=== PATIENT | female | born 1960 | race Caucasian/White ===

== ENCOUNTER 2018-11-19 03:44 | Observation (INO) | payer OTHER ==
[~2018-11-19] VITALS: Ht 170.2 cm; Wt 68.6 kg
[2018-11-19] VITALS (10 sets, daily range): BP systolic 105–116; BP diastolic 55–69; PULSE 59–74; RESP 16–18; Ht 170.2 cm; Wt 68.6 kg
[2018-11-19] MEDS ORDERED: ONDANSETRON 4 MG INJ IV STA (03:56)
[2018-11-19] MEDS ORDERED: morphine 4 MG/ML VIAL IV STA ×2 (03:56→05:08)
[2018-11-19] MEDS ORDERED: SOD CHLORIDE 0.9% 100 ML ONE (04:38)
[2018-11-19] MEDS ORDERED: IOHEXOL 300MG/ML 150 ML BTL ONE (04:38)
--- NOTE | 2018-11-19 05:26 | ERD ---
ER Documentation Chief Complaint Chief Complaint H/A, L SIDED NUMBNESS, POSSIBLE SYNCOPE APPROX 0300 HPI This is a 57-year-old female with a history of hypertension who presents for evaluation of headache, and left-sided numbness for the last hour. The patient reports that her symptoms started earlier today, she states that she felt near syncopal at that time, she denies chest pain or shortness of breath, she has a history of migraine headaches, but states this is different. There are no alleviating or aggravating factors. ROS All systems reviewed and are negative except as per history of present illness. Allergies Allergies: Coded Allergies: No Known Allergy (Unverified , 07/26/14) PMhx/Soc Hx Miscellaneous Medical Probl: Yes (MIGRAINES) Hx Alcohol Use: No Hx Substance Use: No Hx Tobacco Use: No Smoking Status: Never smoker Physical Exam Vitals Vital Signs Date Temp Pulse Resp B/P (MAP) Pulse Ox O2 O2 Flow FiO2 Time Delivery Rate 11/19/18 Nasal 1 04:02 Cannula 11/19/18 98.7 87 18 180/104 100 03:47 (129) Physical Exam Const: No acute distress Head: Atraumatic Eyes: Normal Conjunctiva ENT: Normal External Ears, Nose and Mouth. Neck: Full range of motion. No meningismus. Resp: Clear to auscultation bilaterally Cardio: Regular rate and rhythm, no murmurs Abd: Soft, non tender, non distended. Normal bowel sounds Skin: No petechiae or rashes Back: No midline or flank tenderness Ext: No cyanosis, or edema Neur: Awake and alert, alert and oriented x4, cranial nerves 2 through 12 intact, strength 5 out of 5 bilaterally, Psych: Normal Mood and Affect Result Diagram: 11/19/1840911/19/18409 Results 24 hrs Laboratory Tests Test 11/19/18 04:10 11/19/18 04:23 White Blood Count 6.3 10^3/ul Red Blood Count 4.42 10^6/ul Hemoglobin 14.0 g/dl Hematocrit 40.5 % Mean Corpuscular Volume 91.6 fl Mean Corpuscular Hemoglobin 31.7 pg Mean Corpuscular Hemoglobin Concent 34.6 g/dl Red Cell Distribution Width 11.5 % Platelet Count 290 10^3/UL Mean Platelet Volume 9.6 fl Immature Granulocytes % 0.200 % Neutrophils % 64.8 % Lymphocytes % 26.6 % Monocytes % 7.0 % Eosinophils % 0.8 % Basophils % 0.6 % Nucleated Red Blood Cells % 0.0 /100WBC Immature Granulocytes # 0.010 10^3/ul Neutrophils # 4.1 10^3/ul Lymphocytes # 1.7 10^3/ul Monocytes # 0.4 10^3/ul Eosinophils # 0.1 10^3/ul Basophils # 0.0 10^3/ul Nucleated Red Blood Cells # 0.0 10^3/ul Prothrombin Time 12.8 Sec Prothrombin Time Ratio 1.0 INR International Normalized Ratio 0.95 Activated Partial Thromboplast Time 26.4 Sec Sodium Level 142 mmol/L Potassium Level 3.9 mmol/L Chloride Level 106 mmol/L Carbon Dioxide Level 25 mmol/L Anion Gap 11 Blood Urea Nitrogen 13 mg/dl Creatinine 0.71 mg/dl Est Glomerular Filtrat Rate mL/min > 60 mL/min Glucose Level 122 mg/dl Calcium Level 9.6 mg/dl Troponin I < 0.012 ng/ml Triglycerides Level 183 mg/dl Cholesterol Level 264 mg/dl LDL Cholesterol, Calculated 185 mg/dl HDL Cholesterol 42 mg/dl Cholesterol/HDL Ratio 6.2 RATIO Bedside Glucose 118 mg/dL Current Medications Medications Dose Sig/Yun Start Time Status Last (Trade) Ordered Route PRN Stop Time Admin Dose Reason Admin Morphine 4 mg ONCE STAT 11/19/18 DC 11/19/18 Sulfate IV 03:56 11/19/18 04:34 (morphine) 04:08 Ondansetron 4 mg ONCE STAT 11/19/18 DC 11/19/18 HCl (Zofran IV 03:56 11/19/18 04:34 Inj) 04:08 Sodium 100 ml @ ud STK-MED 11/19/18 DC 11/19/18 Chloride ONCE .ROUTE 04:38 11/19/18 04:39 04:39 Iohexol 150 ml STK-MED 11/19/18 DC 11/19/18 (Omnipaque ONCE .ROUTE 04:38 11/19/18 04:39 300mg/ ml) 04:39 Morphine 4 mg ONCE STAT 11/19/18 DC Sulfate IV 05:08 11/19/18 (morphine) 05:09 Procedures/MDM This is a 57-year-old female who presents for evaluation of headache and left arm numbness. She has a history of migraine headaches, however her left arm numbness is new, thus considered TIA, her symptoms are intermittent and her NIH stroke scale would be 0, thus it it is less likely to be acute CVA, her CT and CTA were negative for acute findings. I discussed the case with radiology, and differential diagnosis includes complex migraine, versus multiple sclerosis, MRI was ordered, and patient will be admitted to telemetry under Dr. Joaquin. EKG: Rate/Rhythm: Normal Sinus Rhythm QRS, ST, T-waves: No changes consistent w/ acute ischemia Impression: No evidence of ischemia or arrhythmia Departure Diagnosis: Primary Impression: Headache Headache type: unspecified Headache chronicity pattern: acute headache Intractability: not intractable Qualified Codes: R51 - Headache Additional Impression: Left arm numbness Condition: Stable MAIDA HORNER MD Nov 19, 2018 05:26
[2018-11-19] MEDS ORDERED: [UNRECOGNIZED DRUG - CODE] PO (05:46)
[2018-11-19] MEDS ORDERED: CYAN100080 PO (05:46)
[2018-11-19] MEDS ORDERED: DOCUSATE SODIUM 100 MG CAP PO PRN (09:00)
[2018-11-19] MEDS ORDERED: ONDANSETRON 4 MG INJ IV PRN (09:00)
[2018-11-19] MEDS ORDERED: morphine 4 MG/ML VIAL IV PRN (09:00)
[2018-11-19] MEDS ORDERED: ACETAMINOPHEN 325 MG TAB PO PRN (09:00)
[2018-11-19] MEDS ORDERED: ZOLPIDEM 5 MG TAB PO PRN (09:00)
[2018-11-19] MEDS ORDERED: HYDROCODONE/APAP (5/325) TAB PO PRN (09:00)
[2018-11-19] MEDS ORDERED: NACL 0.9% 3 ML SYG IV SCH (09:00)
--- NOTE | 2018-11-19 10:35 | NUR ---
Admitted from ER with Dx of numbness to LUE. Awake, alert/oriented x4. Initial assessments done, skin photo taken. Call light within reach for assistance. Discussed plan of care.
--- NOTE | 2018-11-19 11:37 | HP ---
Date/Time of Note Date/Time of Note DATE: 11/19/18 TIME: 11:30 Assessment/Plan VTE Prophylaxis Pharmacological prophylaxis: LMWH Lines/Catheters IV Catheter Type (from Nrsg): Saline Lock Assessment/Plan Hospital Course 1. Left-sided weakness secondary to hemiplegia from a migraine MRI shows small increased FLAIR / T2 signal in the periventricular and subcortical white matter likely secondary to a migraine CTA of the head shows no significant findings Neurology consultation obtained PT and OT evaluation Anticipate improvement with time Pain control Aspirin and statin for now Prophylaxis: Lovenox Result Diagram: 11/19/18 0410 11/19/18 0410 Results 24hrs Laboratory Tests Test 11/19/18 04:10 11/19/18 04:23 11/19/18 06:32 White Blood Count 6.3 Red Blood Count 4.42 Hemoglobin 14.0 Hematocrit 40.5 Mean Corpuscular Volume 91.6 Mean Corpuscular Hemoglobin 31.7 Mean Corpuscular Hemoglobin Concent 34.6 Red Cell Distribution Width 11.5 Platelet Count 290 Mean Platelet Volume 9.6 Immature Granulocytes % 0.200 Neutrophils % 64.8 Lymphocytes % 26.6 Monocytes % 7.0 Eosinophils % 0.8 Basophils % 0.6 Nucleated Red Blood Cells % 0.0 Immature Granulocytes # 0.010 Neutrophils # 4.1 Lymphocytes # 1.7 Monocytes # 0.4 Eosinophils # 0.1 Basophils # 0.0 Nucleated Red Blood Cells # 0.0 Prothrombin Time 12.8 Prothrombin Time Ratio 1.0 INR International Normalized Ratio 0.95 Activated Partial Thromboplast Time 26.4 Sodium Level 142 Potassium Level 3.9 Chloride Level 106 Carbon Dioxide Level 25 Anion Gap 11 Blood Urea Nitrogen 13 Creatinine 0.71 Est Glomerular Filtrat Rate mL/min > 60 Glucose Level 122 Hemoglobin A1c 4.8 Calcium Level 9.6 Troponin I < 0.012 Triglycerides Level 183 H Cholesterol Level 264 H LDL Cholesterol, Calculated 185 HDL Cholesterol 42 Cholesterol/HDL Ratio 6.2 Bedside Glucose 118 Urine Color STRAW Urine Clarity CLEAR Urine pH 6.0 Urine Specific [place] 1.043 H Urine Ketones NEGATIVE Urine Nitrite NEGATIVE Urine Bilirubin NEGATIVE Urine Urobilinogen NEGATIVE Urine Leukocyte Esterase NEGATIVE Urine Hemoglobin NEGATIVE Urine Glucose NEGATIVE Urine Total Protein NEGATIVE Urine Opiates Screen Positive Urine Barbiturates Negative Urine Amphetamines Screen Negative Urine Benzodiazepines Screen Negative Urine Cocaine Screen Negative Urine Cannabinoids Negative HPI/ROS Admit Date/Time Admit Date/Time Nov 19, 2018 at 05:23 Hx of Present Illness Patient is a 57-year-old female with a past medical history of migraines, patient presents with left-sided facial and upper extremity weakness that began yesterday after a significant migraine. Patient reports feeling confused after her migraine with associated numbness and weakness on the left side of her face as well as in her left arm. Patient has no prior history of such symptoms and has no history of strokes or cardiac issues. Patient states that her headache has currently improved and her weakness has slowly begun to improve. Patient has no other complaints at this time. ROS Constitutional: no complaints, improved Eyes: no complaints ENT: no complaints Respiratory: no complaints Cardiovascular: no complaints Gastrointestinal: no complaints Genitourinary: no complaints Musculoskeletal: no complaints Skin: no complaints Neurologic: focal-weakness (Left-sided weakness) Endocrine: no complaints Lymphatic: no complaints Psychological: no complaints, nl mood/affect Immunologic: no complaints PMH/Family/Social Past Medical History Migraines Medications Current Medications Influenza Virus Vaccine Quadrival (Fluzone) 0.5 ml ONCE ONCE IM* ; Start 11/20/18 at 10:00; Stop 11/20/18 at 10:01 IV Flush (NS 3 ml) 3 ml PER PROTOCOL IV ; Start 11/19/18 at 09:00 Ondansetron HCl (Zofran Inj) 4 mg Q6H PRN IV NAUSEA AND/OR VOMITING; Start 11/19/18 at 09:00 Acetaminophen (Tylenol Tab) 650 mg Q6H PRN PO PAIN LEVEL 1-3 OR FEVER; Start 11/19/18 at 09:00 Acetaminophen/ Hydrocodone Bitart ([place] (5/325)) 1 tab Q6H PRN PO MODERATE PAIN LEVEL 4-6; Start 11/19/18 at 09:00 Morphine Sulfate (morphine) 2 mg Q4H PRN IV SEVERE PAIN LEVEL 7-10; Start 11/19/18 at 09:00 Docusate Sodium (Colace) 100 mg Q12H PRN PO CONSTIPATION; Start 11/19/18 at 09:00 Zolpidem Tartrate (Ambien) 5 mg QHS PRN PO SLEEP; Start 11/19/18 at 09:00 Cyanocobalamin (Vitamin B12) 1,000 mcg DAILY PO ; Start 11/19/18 at 09:00 Aspirin (Halfprin) 81 mg DAILY PO ; Start 11/19/18 at 09:00 Atorvastatin Calcium (Lipitor) 40 mg HS PO ; Start 11/19/18 at 21:00 Coded Allergies: No Known Allergy (Unverified , 11/19/18) Past Surgical History Past Surgical Hx: no surgical history Family History Significant Family History: hypertension Social History Alcohol Use: occasionally Smoking Status: Never smoker Drug Use: none Exam/Review of Systems Vital Signs Vitals Vital Signs Date Temp Pulse Resp B/P (MAP) Pulse Ox O2 O2 Flow FiO2 Time Delivery Rate 11/19/18 65 09:10 11/19/18 97.4 18 110/64 95 Room Air 08:24 (79) 11/19/18 1 04:02 Exam Constitutional: alert, oriented Respiratory: clear to auscultation Cardiovascular: regular rate and rhythm Gastrointestinal: soft; No distended Musculoskeletal: nl extremities to inspection Neurological: focal weakness (Left upper and lower extremity weakness at 4- out of 5) KELLY WILLARD Nov 19, 2018 11:37
[2018-11-19] MEDS: ASPIRIN (EC) 81 MG TAB PO SCH (11:41)
[2018-11-19] MEDS: CYANOCOBALAMIN 500 MCG TAB PO SCH (11:41)
--- NOTE | 2018-11-19 12:28 | CONS ---
Assessment/Plan Assessment/Plan Hospital Course A: 57 yo F with longstanding Hx of migraines who p/w migraines, L hemisensory loss, and L hemiparesis...for which neurology is consulted. Most clinically consistent with complicated migraines with aura. MRI brain is reassuringly without acute intracranial pathology. CTA H/N is unrevealing. P: OK to defer additional neuroimaging for now Avoid triptans/ergotamines Trial of solumedrol 1g IV x 1 dose Toradol 15mg IV q8h for 24 h PT/OT as necessary Other medical management and supportive care per primary Will follow clinically Result Diagram: 11/19/1840911/19/18409 Results 24hrs Laboratory Tests Test 11/19/18 04:10 11/19/18 04:23 11/19/18 06:32 White Blood Count 6.3 Red Blood Count 4.42 Hemoglobin 14.0 Hematocrit 40.5 Mean Corpuscular Volume 91.6 Mean Corpuscular Hemoglobin 31.7 Mean Corpuscular Hemoglobin Concent 34.6 Red Cell Distribution Width 11.5 Platelet Count 290 Mean Platelet Volume 9.6 Immature Granulocytes % 0.200 Neutrophils % 64.8 Lymphocytes % 26.6 Monocytes % 7.0 Eosinophils % 0.8 Basophils % 0.6 Nucleated Red Blood Cells % 0.0 Immature Granulocytes # 0.010 Neutrophils # 4.1 Lymphocytes # 1.7 Monocytes # 0.4 Eosinophils # 0.1 Basophils # 0.0 Nucleated Red Blood Cells # 0.0 Prothrombin Time 12.8 Prothrombin Time Ratio 1.0 INR International Normalized Ratio 0.95 Activated Partial Thromboplast Time 26.4 Sodium Level 142 Potassium Level 3.9 Chloride Level 106 Carbon Dioxide Level 25 Anion Gap 11 Blood Urea Nitrogen 13 Creatinine 0.71 Est Glomerular Filtrat Rate mL/min > 60 Glucose Level 122 Hemoglobin A1c 4.8 Calcium Level 9.6 Troponin I < 0.012 Triglycerides Level 183 H Cholesterol Level 264 H LDL Cholesterol, Calculated 185 HDL Cholesterol 42 Cholesterol/HDL Ratio 6.2 Bedside Glucose 118 Urine Color STRAW Urine Clarity CLEAR Urine pH 6.0 Urine Specific [place] 1.043 H Urine Ketones NEGATIVE Urine Nitrite NEGATIVE Urine Bilirubin NEGATIVE Urine Urobilinogen NEGATIVE Urine Leukocyte Esterase NEGATIVE Urine Hemoglobin NEGATIVE Urine Glucose NEGATIVE Urine Total Protein NEGATIVE Urine Opiates Screen Positive Urine Barbiturates Negative Urine Amphetamines Screen Negative Urine Benzodiazepines Screen Negative Urine Cocaine Screen Negative Urine Cannabinoids Negative Consultation Date/Type/Reason Admit Date/Time Nov 19, 2018 at 05:23 Type of Consult Neurology Reason for Consultation migraine, hemiplegia Requesting Provider: KELLY WILLARD Date/Time of Note DATE: 11/19/18 TIME: 12:28 Hx of Present Illness Hx of Present Illness Patient is a 57-year-old female with a past medical history of migraines, patient presents with left-sided facial and upper extremity weakness that began yesterday after a significant migraine. Patient reports feeling confused after her migraine with associated numbness and weakness on the left side of her face as well as in her left arm. Patient has no prior history of such symptoms and has no history of strokes or cardiac issues. Patient states that her headache has currently improved and her weakness has slowly begun to improve. Patient has no other complaints at this time. negative unless noted otherwise in HPI Exam/Review of Systems Vital Signs Vitals Vital Signs Date Temp Pulse Resp B/P (MAP) Pulse Ox O2 O2 Flow FiO2 Time Delivery Rate 11/19/18 97.8 69 16 116/58 95 Room Air 11:35 (77) 11/19/18 1 04:02 Exam PE: Gen Appearance: No Apparent Distress HEENT: Normocephalic Cardiovascular: Regular rate Lungs: Clear bilaterally Abdomen: Soft Extremities: Dry NE: The patient was alert and oriented. Language was normal. Fund of knowledge was normal. Pupils were equal and reactive to light. There was no afferent pupillary defect. Visual rizo were normal. Funduscopic examination was limited. Extra-ocular movements were full. Ptosis was absent. There was no nystagmus. Facial sensation was diminished on the L. Face was symmetric with normal strength. Hearing was intact. Palate movements were normal. Neck strength was normal. There was normal tongue bulk and speed of movement. Tone was normal. Muscle bulk was normal. I did not see fasciculations. Arms and legs were mildly weaker on the L vs R Sensation to light touch was diminished on the L. Vibration sensation was normal. Temperature and pinprick sensation was normal. Rapid alternating movements were normal. There was no dysmetria. There was no intention tremor. Gait was deferred due to bedrest. Arm and leg reflexes were 2+ and symmetric. Pittman's sign was absent. Plantar responses were flexor. Medications Medications Current Medications Influenza Virus Vaccine Quadrival (Fluzone) 0.5 ml ONCE ONCE IM* ; Start 11/20/18 at 10:00; Stop 11/20/18 at 10:01 IV Flush (NS 3 ml) 3 ml PER PROTOCOL IV ; Start 11/19/18 at 09:00 Ondansetron HCl (Zofran Inj) 4 mg Q6H PRN IV NAUSEA AND/OR VOMITING; Start 11/19/18 at 09:00 Acetaminophen (Tylenol Tab) 650 mg Q6H PRN PO PAIN LEVEL 1-3 OR FEVER; Start 11/19/18 at 09:00 Acetaminophen/ Hydrocodone Bitart ([place] (5/325)) 1 tab Q6H PRN PO MODERATE PAIN LEVEL 4-6; Start 11/19/18 at 09:00 Morphine Sulfate (morphine) 2 mg Q4H PRN IV SEVERE PAIN LEVEL 7-10; Start at 09:00 Docusate Sodium (Colace) 100 mg Q12H PRN PO CONSTIPATION; Start 11/19/18 at 09:00 Zolpidem Tartrate (Ambien) 5 mg QHS PRN PO SLEEP; Start 11/19/18 at 09:00 Cyanocobalamin (Vitamin B12) 1,000 mcg DAILY PO Last administered on 11/19/18at 11:41; Admin Dose 1,000 MCG; Start 11/19/18 at 09:00 Aspirin (Halfprin) 81 mg DAILY PO Last administered on 11/19/18at 11:41; Admin Dose 81 MG; Start 11/19/18 at 09:00 Atorvastatin Calcium (Lipitor) 40 mg HS PO ; Start 11/19/18 at 21:00 Enoxaparin Sodium (Lovenox) 40 mg DAILY SC ; Start 11/20/18 at 09:00 Imaging Imaging MRI brain: IMPRESSION: Calcified right frontal lobe lesion is better seen on CT, likely neurocysticerco sis. No definite acute intracranial abnormality. Scattered small increased FLAIR / T2 signal in the periventricular and subcortical white matter again seen, most likely due to chronic microvascular ischemic change or possibly vasculitis or migraine related changes. Demyelinating disease would be less likely. CT reviewed: IMPRESSION: 1. No acute intracranial pathology. 2. Scattered areas of decreased attenuation in the bilateral subcortical, periventricular, deep white matter with diagnostic considerations including mild chronic microvascular white matter ischemic disease, demyelination, and the sequela of a remote infectious, inflammatory, or vascular insult. 3. 3 mm and 1 mm calcifications of the right frontal lobe likely representing sequela of remote infection. CTA H/N: IMPRESSION: 1. No flow-limiting intracranial stenosis or aneurysm. 2. No measurable stenosis of the extracranial right internal carotid artery by NASCET criteria. 3. Less than 50 % stenosis of the extracranial left internal carotid artery by NASCET criteria. 4. Bilateral antegrade flow in the vertebral arteries. 5. If clinically appropriate further evaluation with MRI examination of the brain is recommended. Past Medical History reviewed Medications Current Medications Influenza Virus Vaccine Quadrival (Fluzone) 0.5 ml ONCE ONCE IM* ; Start 11/20/18 at 10:00; Stop 11/20/18 at 10:01 IV Flush (NS 3 ml) 3 ml PER PROTOCOL IV ; Start 11/19/18 at 09:00 Ondansetron HCl (Zofran Inj) 4 mg Q6H PRN IV NAUSEA AND/OR VOMITING; Start 11/19/18 at 09:00 Acetaminophen (Tylenol Tab) 650 mg Q6H PRN PO PAIN LEVEL 1-3 OR FEVER; Start 11/19/18 at 09:00 Acetaminophen/ Hydrocodone Bitart ([place] (5/325)) 1 tab Q6H PRN PO MODERATE PAIN LEVEL 4-6; Start 11/19/18 at 09:00 Morphine Sulfate (morphine) 2 mg Q4H PRN IV SEVERE PAIN LEVEL 7-10; Start 11/19 at 09:00 Docusate Sodium (Colace) 100 mg Q12H PRN PO CONSTIPATION; Start 11/19/18 at 09:00 Zolpidem Tartrate (Ambien) 5 mg QHS PRN PO SLEEP; Start 11/19/18 at 09:00 Cyanocobalamin (Vitamin B12) 1,000 mcg DAILY PO Last administered on 11/19/18at 11:41; Admin Dose 1,000 MCG; Start 11/19/18 at 09:00 Aspirin (Halfprin) 81 mg DAILY PO Last administered on 11/19/18at 11:41; Admin Dose 81 MG; Start 11/19/18 at 09:00 Atorvastatin Calcium (Lipitor) 40 mg HS PO ; Start 11/19/18 at 21:00 Enoxaparin Sodium (Lovenox) 40 mg DAILY SC ; Start 11/20/18 at 09:00 Allergies: Coded Allergies: No Known Allergy (Unverified , 11/19/18) Past Surgical History reviewed Past Surgical Hx: no surgical history Family History Significant Family History: no pertinent family hx Social History reviewed Alcohol Use: occasionally Smoking Status: Never smoker Drug Use: none HAILEY COMER NP Nov 19, 2018 12:28 [place] Nov 20, 2018 06:35
[2018-11-19] MEDS: KETOROLAC 15 MG INJ IV SCH ×3 (14:29→22:21)
[2018-11-19] MEDS ORDERED: METHYLPRED. NA SUCC 1,000 MG in DEXTROSE 5% 50 ML IVPB ONE (15:00)
--- NOTE | 2018-11-19 18:49 | NUR ---
PT EVALUATION: This is pt is a 57-year-old female with a PMHx of migraines, patient presents with left-sided facial and upper extremity weakness that began yesterday after a significant migraine, reported feeling confused after her migraine with associated numbness and weakness on the left side of her face as well as in her left arm. Patient has no prior history of such symptoms and has no history of strokes or cardiac issues. PLOF: Pt lives in a house with her and IND in all functional mobility , ADL's and IADL's . pt works in [employer] and able to drive. Precautions : fall risks S: No c/o pain . O:Cleared by RN to be seen today. Received pt in semifowler's position. Pt agreeable to participate and very motivated.Pt able to perform bed mobility I'ly , transfers I'ly and gait without AD supervised to IND . TUG test 10 secs and Sharpened Romberg's test 60 secs completed, indicating that pt has good standing balance A: Pt is seen for skilled PT evaluation today and no further tx is indicated as of this time because pt is within baseline level. P: HEP and safety awareness
[2018-11-19] MEDS ORDERED: ATORVASTATIN 40 MG TAB PO SCH (21:00)
[2018-11-20] VITALS (7 sets, daily range): BP systolic 104–133; BP diastolic 59–77; PULSE 66–88; RESP 18–19
[2018-11-20] MEDS: KETOROLAC 15 MG INJ IV SCH (06:00)
--- NOTE | 2018-11-20 07:00 | NUR ---
EOSS: Patient resting comfortably in stable condition. Pt a/o X4 and on room air. VS stable. Will endorse to shree SCHAEFFER. Addendum: 11/20/18 at 0737 by JOSELINE DAVID RN Pt refused Toradol twice because she states she not in pain.
[2018-11-20] MEDS: CYANOCOBALAMIN 500 MCG TAB PO SCH (08:53)
[2018-11-20] MEDS: ASPIRIN (EC) 81 MG TAB PO SCH (08:53)
[2018-11-20] MEDS ORDERED: ENOXAPARIN 40 MG/0.4 ML SYG SC SCH (09:00)
--- NOTE | 2018-11-20 09:25 | NUR ---
OT EVAL: This is pt is a 57-year-old female with a PMHx of migraines, patient presents with left-sided facial and upper extremity weakness that began yesterday after a significant migraine, reported feeling confused after her migraine with associated numbness and weakness on the left side of her face as well as in her left arm. Patient has no prior history of such symptoms and has no history of strokes or cardiac issues. PLOF: Pt lives in a house with her and IND in all functional mobility , ADL's and IADL's . pt works in [employer] and able to drive. CLOF: RN cleared pt for skilled OT. PT received supine in bed agreeable to tx stating 0/10 pain. Pt AOx4 and demonstrated BUE AROM WFL: MMT 4/5. Pt performed h/g, toilet transfer, functional mob and UB/LB dressing independently. Pt returned back to bed with all needs met. No skilled OT warranted at this time as pt is independent with ADL's.- D/C OT.
[2018-11-20] MEDS ORDERED: INFLUENZA VIRUS VACCINE 0.5 ML (DISPENSING) IM* ONE (10:00)
--- NOTE | 2018-11-20 10:25 | CONS ---
Assessment/Plan Assessment/Plan Hospital Course A: 57 yo F with longstanding Hx of migraines who p/w migraines, L hemisensory loss, and L hemiparesis...for which neurology is consulted. Most clinically consistent with complicated migraines with aura. MRI brain is reassuringly without acute intracranial pathology. CTA H/N is unrevealing. P: OK to defer additional neuroimaging for now Avoid triptans/ergotamines Motrin prn PT/OT as necessary Neurologically cleared for d/c Result Diagram: 11/20/18 0535 11/20/18 0534 Results 24hrs Laboratory Tests Test 11/20/18 05:34 11/20/18 05:35 Sodium Level 144 Potassium Level 4.1 Chloride Level 105 Carbon Dioxide Level 25 Anion Gap 14 H Blood Urea Nitrogen 27 #H Creatinine 0.93 Est Glomerular Filtrat Rate mL/min > 60 Glucose Level 157 Calcium Level 10.0 Phosphorus Level 4.4 Magnesium Level 2.3 White Blood Count 6.7 Red Blood Count 4.19 L Hemoglobin 13.2 Hematocrit 38.9 Mean Corpuscular Volume 92.8 Mean Corpuscular Hemoglobin 31.5 Mean Corpuscular Hemoglobin Concent 33.9 Red Cell Distribution Width 11.5 Platelet Count 291 Mean Platelet Volume 10.0 Immature Granulocytes % 0.500 H Neutrophils % 91.1 H Lymphocytes % 7.7 L Monocytes % 0.5 Eosinophils % 0.0 Basophils % 0.2 Nucleated Red Blood Cells % 0.0 Immature Granulocytes # 0.030 Neutrophils # 6.1 Lymphocytes # 0.5 L Monocytes # 0.0 L Eosinophils # 0.0 Basophils # 0.0 Nucleated Red Blood Cells # 0.0 Consultation Date/Type/Reason Admit Date/Time Nov 19, 2018 at 05:23 Type of Consult Neurology Requesting Provider: KELLY WILLARD Date/Time of Note DATE: 11/20/18 TIME: 10:25 24 HR Interval Summary Free Text/Dictation continues acute care. weakness and headache improving.. Exam Vital Signs Vitals Vital Signs Date Temp Pulse Resp B/P (MAP) Pulse Ox O2 O2 Flow FiO2 Time Delivery Rate 11/20/18 88 08:58 11/20/18 98.3 18 133/77 90 07:23 (95) 11/19/18 Room Air 11:35 11/19/18 1 04:02 Intake and Output 11/19/18 11/19/18 11/20/18 1414:59 22:59 06:59 IntakeIntake Total 800 ml BalanceBalance 800 ml Exam PE: Gen Appearance: No Apparent Distress HEENT: Normocephalic Cardiovascular: Regular rate Lungs: Clear bilaterally Abdomen: Soft Extremities: Dry NE: The patient was alert and oriented, able to spell WORLD backwards, and able to recall all three words after a five minute delay. Language was normal. Fund of knowledge was normal. Pupils were equal and reactive to light. There was no afferent pupillary defect. Visual rizo were normal. Funduscopic examination showed sharp disc margins and spontaneous venous pulsations. Extra-ocular movements were full. Ptosis was absent. There was no nystagmus. Facial sensation was normal. Face was symmetric with normal strength. Hearing was intact. Palate movements were normal. Neck strength was normal. There was normal tongue bulk and speed of movement. Tone was normal. Muscle bulk was normal. I did not see fasciculations. Arms and legs were strong. Vibration sensation was normal. Temperature and pinprick sensation was normal. Rapid alternating movements were normal. There was no dysmetria. There was no intention tremor. Gait was deferred due to bedrest. Arm and leg reflexes were 2+ and symmetric. Pittman's sign was absent. Plantar responses were flexor. [place] Nov 20, 2018 10:25
[2018-11-20] MEDS ORDERED: ASPI-817 PO (14:01)
[2018-11-20] MEDS ORDERED: ATOR40TA68 PO (14:01)
== END 2018-11-20 16:18 | disposition home or self-care (01) ==
LOC: E/R 03:44 → TEL 05:23 → EDBEDREQ 06:56 → TEL 07:38
PROVIDERS: ADMIT Internal Medicine; ATTEND Family Medicine
DX: G43.109 Migraine with aura, not intractable, without status migrainosus (principal); G81.94 Hemiplegia, unspecified affecting left nondominant side
CPT/HCPCS: 36415; 70450; 70496; 70498; 70553; 71045; 80048; 80061; 80307; 81003; 82962; 83036; 83735; 84100; 84484; 85025; 85610; 85730; 93005; 96374; 96375; 97161; 97165; 99285; G0378; J1885; J2270; J2405; J2930; Q9967; J1650